=== PATIENT | female | born 1955 | race Caucasian/White ===

== ENCOUNTER 2024-05-01 19:29 | Emergency (ER) | payer MEDICARE, BC ==
[~2024-05-01] VITALS: Ht 157.5 cm; Wt 77.1 kg
[2024-05-01] MEDS ORDERED: OXYMETAZOLINE HCL NASAL SPRAY 30 ML BOTTLE NS ONE (20:20)
[2024-05-01] MEDS ORDERED: TRANEXAMIC ACID 1,000 MG/10 ML VIAL ONE ×2 (20:20→23:16)
[2024-05-01] MEDS: TRANEXAMIC ACID 1,000 MG/10 ML VIAL NS ONE (20:35)
[2024-05-01] MEDS: OXYMETAZOLINE HCL NASAL SPRAY 30 ML BOTTLE NS ONE (20:35)
[2024-05-01] MEDS ORDERED: TRANEXAMIC ACID 1,000 MG/10 ML VIAL NS ONE (23:30)
[2024-05-01 23:34] VITALS: BP 146/91; TEMP 98.6; O2SAT 98
== END 2024-05-01 23:35 | disposition home or self-care (01) ==
LOC: ER 19:34
DX: R04.0 Epistaxis (principal); E11.9 Type 2 diabetes mellitus without complications; E78.5 Hyperlipidemia, unspecified; I10 Essential (primary) hypertension
CPT/HCPCS: 99284; 30901; A6403